=== PATIENT | female | born 1980 | race Two or more races ===

== ENCOUNTER 2021-08-18 06:28 | Day surgery (SDC) | payer OTHER ==
[~2021-08-18] VITALS: Ht 160 cm; Wt 49.9 kg
[2021-08-18] MEDS ORDERED: LEXAPRO5 MG PO (08:44)
[2021-08-18] MEDS ORDERED: CLONAZEPAM0.5 MG PO (08:46)
[2021-08-18] MEDS ORDERED: AMBIEN5 MG PO (08:46)
[2021-08-18] MEDS ORDERED: IBU800 MG PO (11:58)
== END 2021-08-18 16:40 | disposition home or self-care (01) ==
LOC: CIR.AMB 06:28
PROVIDERS: ATTEND Obstetrics & Gynecology Gynecology
DX: C54.1 Malignant neoplasm of endometrium (principal); Z20.822 Contact with and (suspected) exposure to COVID-19; Z88.6 Allergy status to analgesic agent; I10 Essential (primary) hypertension; I25.10 Atherosclerotic heart disease of native coronary artery without angina pectoris; J45.909 Unspecified asthma, uncomplicated; E78.5 Hyperlipidemia, unspecified; E03.9 Hypothyroidism, unspecified